=== PATIENT | female | born 1980 | race Caucasian/White ===

== ENCOUNTER 2017-05-01 22:40 | Emergency (ER) | payer SELFPAY ==
[~2017-05-01 22:40] MED LIST: COMBIVENT INH; PROAIR HFA INH; SYN.025B PO
== END 2017-05-02 00:40 | disposition home or self-care (01) ==
LOC: ER 22:40
DX: M72.2 Plantar fascial fibromatosis (principal); I10 Essential (primary) hypertension; Z87.891 Personal history of nicotine dependence; Z79.899 Other long term (current) drug therapy
CPT/HCPCS: 73630-RT; 96372; 99283; A9270-GY